=== PATIENT | male | born 1950 | race Two or more races ===

== ENCOUNTER 2020-06-07 09:47 | Inpatient (IN) | payer OTHER ==
[~2020-06-07] VITALS: Ht 188 cm; Wt 89.8 kg
[2020-06-20] MEDS ORDERED: METFORMIN HCL850 M1 PO (13:47)
[2020-06-20] MEDS ORDERED: ZESTRIL10 M1 PO (13:47)
[2020-06-20] MEDS ORDERED: ACTOS45 MG PO (13:47)
[2020-07-01] MEDS ORDERED: OXYC1TAB9 PO (12:55)
[2020-07-01] MEDS ORDERED: AMOX1TAB5 PO (12:55)
[2020-07-01] MEDS ORDERED: PANTOPRAZOLE SO40 MG PO (12:56)
== END 2020-07-01 16:06 | disposition home or self-care (01) | DRG 330 ==
LOC: O/R 06-27 08:31 → SURH 06-27 10:00
PROVIDERS: ADMIT Surgery; ATTEND Surgery
PROC: 0DBN4ZZ Excision of Sigmoid Colon, Percutaneous Endoscopic Approach (ICD-10-PCS; 2020-06-27)
PROC: 07BC4ZX Excision of Pelvis Lymphatic, Percutaneous Endoscopic Approach, Diagnostic (ICD-10-PCS; 2020-06-27)
PROC: 0DJD8ZZ Inspection of Lower Intestinal Tract, Via Natural or Artificial Opening Endoscopic (ICD-10-PCS; 2020-06-27)
PROC: 0DTP4ZZ Resection of Rectum, Percutaneous Endoscopic Approach (ICD-10-PCS; principal; 2020-06-27 12:45)
DX: C18.7 Malignant neoplasm of sigmoid colon (principal); L03.316 Cellulitis of umbilicus; I10 Essential (primary) hypertension; L76.82 Other postprocedural complications of skin and subcutaneous tissue; Z20.828 Contact with and (suspected) exposure to other viral communicable diseases

== ENCOUNTER 2020-08-07 05:45 | Day surgery (SDC) | payer OTHER ==
[~2020-08-07 05:45] MED LIST: ACTOS45 MG PO; AMOX1TAB5 PO; METFORMIN HCL850 M1 PO; OXYC1TAB9 PO; PANTOPRAZOLE SO40 MG PO; ZESTRIL10 M1 PO
[2020-08-07] MEDS ORDERED: ULTRACET PO (08:24)
== END 2020-08-07 10:50 | disposition home or self-care (01) ==
LOC: CIR.AMB 05:45
PROVIDERS: ATTEND Surgery
DX: C18.7 Malignant neoplasm of sigmoid colon (principal); Z20.828 Contact with and (suspected) exposure to other viral communicable diseases
CPT/HCPCS: 36561; C1751

== ENCOUNTER 2021-09-04 05:52 | Day surgery (SDC) | payer OTHER ==
[~2021-09-04 05:52] MED LIST changes: +ULTRACET PO
[2021-09-04] MEDS ORDERED: ULTRACET PO (08:21)
== END 2021-09-04 10:05 | disposition home or self-care (01) ==
LOC: CIR.AMB 05:52
PROVIDERS: ATTEND Surgery
DX: C18.7 Malignant neoplasm of sigmoid colon (principal); Z20.822 Contact with and (suspected) exposure to COVID-19

== ENCOUNTER 2025-03-08 09:25 | Day surgery (SDC) | payer OTHER ==
[2025-03-07 14:39] LABS: URINE APPEARANCE Clear; URINE BILIRRUBIN Negative (NEGATIVE); URINE COLOR Dark Yellow; URINE GLUCOSE Negative (NEGATIVE); URINE KETONE Trace (NEGATIVE)
[2025-03-07 14:40] LABS: PH,URINE 5.5 (5.0-8.0); URINE BLOOD Negative; URINE LEUKOCYTE Negative; URINE NITRATE Negative; URINE PROTEIN Trace (NEGATIVE)
[2025-03-07 14:42] LABS: BASO % 0.5 % (0.1-1.2); EOS # 0.08 (0.04-0.54); EOS % 0.9 % (0.7-7.0); HEMATOCRIT 37.1 % (40.1-51.0); HEMOGLOBIN 12.4 g/dL (13.7-17.5); LYMPH # 1.65 (1.18-3.74); LYMPH % 18.1 % (19.3-53.1); MEAN CORPUSCULAR HEMOGLOBIN 31.3 pg (25.6-32.2); MONO # 0.86 (0.24-0.82); MONO % 9.4 % (4.7-12.5); NEUT # 6.44 (1.56-6.13); NEUT % 70.6 % (34.0-71.1); PLATELET COUNT 192 K/uL (163-369); RED BLOOD COUNT 3.96 M/uL (4.63-6.08)
[2025-03-07 14:43] LABS: URINE EPITHELIAL CELLS 3.7 uL (0.0-38.8); URINE WBC 2.2 uL (0.0-23.2)
[2025-03-07 14:52] VITALS: BP 150/74
[2025-03-07 14:52] LABS: COVID-19 AG NEGATIVE (NEGATIVE)
[2025-03-07 14:55] LABS: URINE CAST 0.14 uL (0.0-1.40)
[2025-03-07 15:08] LABS: INR 1.1; PARTIAL THROMBOPLASTIN TIME 23.5 SECONDS (22.0-34.0); PROTHROMBIN TIME 11.9 SECONDS (9.0-11.5)
[2025-03-07 15:15] LABS: CHOL HDL RATIO 4.1 (0-5.0)
[2025-03-07 15:28] LABS: RH POSITIVE
[~2025-03-08] VITALS: Ht 188 cm; Wt 93.4 kg
[2025-03-08 10:53] LABS: ALBUMIN 3.5 gm/dL (3.4-5.0); BILIRUBIN TOTAL 1.8 mg/dL (0.3-1.2); CALCIUM 9.2 mg/dL (8.5-10.1); CREATININE SERUM 0.88 mg/dL (0.70-1.30); GFR 84.89; POTASSIUM 4.61 mEq/L (3.5-5.1); TOTAL PROTEIN 7.5 gm/dL (6.4-8.2)
[2025-03-08] MEDS ORDERED: CEFAZOLIN SODIUM 1,000 MG VIAL ONE (13:57)
[2025-03-08] MEDS ORDERED: TRANEXAMIC ACID 100MG/1ML (1000MG) AMPUL IV ONE (13:58)
[2025-03-08] MEDS ORDERED: VANCOMYCIN HCL 1,000 MG VIAL ONE (14:54)
[2025-03-08] MEDS ORDERED: BUPIVACAINE HCL/MPF 0.5% 30ML VIAL ONE (14:55)
[2025-03-08] MEDS ORDERED: POVIDONE-IODINE 118 ML BOTT TOP ONE (14:56)
[2025-03-08] MEDS ORDERED: LIDOCAINE HCL 1%/EPINEPHRINE 20ML VIAL IJ ONE (14:56)
[2025-03-08] MEDS ORDERED: PERCOCET 5-3251 EACH PO (18:43)
[2025-03-08] MEDS ORDERED: LEVOFLOXACIN750 MG PO (18:43)
[2025-03-08] MEDS ORDERED: ALEVE220 M1 PO (18:43)
== END 2025-03-08 21:00 | disposition home or self-care (01) ==
LOC: CIR.AMB 09:25
PROVIDERS: ATTEND Orthopaedic Surgery
DX: S42.222A 2-part displaced fracture of surgical neck of left humerus, initial encounter for closed fracture (principal)
CPT/HCPCS: 23616; 20902; L8699